=== PATIENT | female | born 1970 | race African-American/Black ===

== ENCOUNTER 2019-01-19 23:36 | Emergency (ER) | payer OTHER ==
[~2019-01-19] VITALS: Ht 160 cm; Wt 90.7 kg
[2019-01-20 00:17] LABS: ABSOLUTE NEUTROPHILS 5.5 thou/uL (1.4-8.2); BASOPHILS 1.3 % (0.0-2.0); HEMATOCRIT 37.4 % (37.0-47.0); LYMPHOCYTES 19.4 % (24.0-44.0); MCHC 32.1 g/dL (28.0-37.0); MCV 87.1 fL (80.0-100.0); MONOCYTES 11.1 % (1.0-8.0); PLATELET COUNT 321 thou/uL (150-400); POLYS 66.2 % (36.0-66.0); RBC 4.29 mil/uL (4.20-5.00); RDW 17.7 % (10.5-14.5); WBC 8.3 thou/uL (4.0-11.0)
[2019-01-20 00:20] LABS: ANION GAP 12 mmol/L (7-16); BUN 12 mg/dL (7-18); CALCIUM 8.7 mg/dL (8.5-10.1); CHLORIDE 104 mmol/L (98-107); CO2 24 mmol/L (21-32); GLUCOSE 109 mg/dL (74-106); POTASSIUM 3.9 mmol/L (3.5-5.1); SODIUM 140 mmol/L (136-145)
[2019-01-20 00:31] LABS: ALBUMIN 3.4 g/dL (3.4-5.0); MAGNESIUM 2.1 mg/dL (1.8-2.4); SGOT 15 U/L (15-37); SGPT 18 U/L (30-65); TOTAL BILIRUBIN 0.2 mg/dL (<0.1-1.0); TOTAL PROTEIN 7.2 g/dL (6.4-8.2); TROPONIN-I <0.06 ng/mL (<0.06)
[2019-01-20] MEDS ORDERED: AZATHIOPRINE50 MG PO (00:39)
[2019-01-20] MEDS ORDERED: FUROSEMIDE 20 M20 MG PO (00:39)
[2019-01-20] MEDS ORDERED: AZELASTINE205.5 MCG/ NARES (00:39)
[2019-01-20] MEDS ORDERED: POTASSIUM CHLO10 MEQ PO (00:39)
[2019-01-20] MEDS ORDERED: FLONASE 0.05%50 MCG NARES (00:39)
[2019-01-20] MEDS ORDERED: PANTOPRAZOLE SO40 M1 PO (00:39)
[2019-01-20] MEDS ORDERED: PREGABALIN100 MG PO (00:40)
[2019-01-20] MEDS ORDERED: DICLOFENAC SOD100 G1 TOP (00:40)
[2019-01-20 01:07] VITALS: BP 137/71
[2019-01-20] MEDS ORDERED: NAPROSYN500 MG PO (01:08)
[2019-01-20] MEDS ORDERED: TRAMADOL 50 MG50 MG PO (01:08)
--- NOTE | 2019-01-20 08:37 | EKG ---
[place] [address] [address] [place] [address] ELECTROCARDIOGRAM REPORT Name: LORENAASA [place] [id number] Admission: 01/19/19 Attend Phys: Discharge: 01/20/19 Date of : 66 Report #: [id number] THIS REPORT FOR: //name// [facility] ED Test Date: 2019-01-19 Test Time: 23:45:10 Pat Name: ASA CARRILLO Department: Room: Gender: F [employer] Pit Boss: ANSELMO : 1970 Requested By: Stu aRi Order Number: [id number] MD: Dexter Angel Measurements Intervals [place] Rate: 77 P: 50 NC: 149 QRS: 50 QRSD: 77 T: 35 QT: 366 QTc: 415 Interpretive Statements Sinus rhythm Normal tracing No previous ECG available for comparison Electronically Signed On 01-20-2019 8:36:48 [employer]AR[employer]PER[employer] HELPER by Dexter Angel [email or web address] <ELECTRONICALLY SIGNED> By: Dexter Angel MD, [facility] 01/20/19 [id number] Dexter Angel MD, FACC /EPI
== END 2019-01-20 01:25 | disposition home or self-care (01) ==
LOC: ER 23:36
PROVIDERS: Emergency Medicine
DX: R07.89 Other chest pain (principal); Z88.8 Allergy status to other drugs, medicaments and biological substances